=== PATIENT | male | born 1975 | race Caucasian/White ===

== ENCOUNTER 2018-01-09 23:05 | Emergency (ER) | payer SELFPAY ==
[2018-01-10] MEDS ORDERED: CATAPRES PO ONE ×2 (01:09→07:15)
[2018-01-10 01:43] LABS: Basophils % (Auto) 0.4 % (0.0-1.8); Eosinophils % (Auto) 0.3 % (0.0-4.3); Hematocrit 41.8 % (35.5-45.6); Hemoglobin 14.6 gm/dl (11.8-15.2); Lymphocytes # (Auto) 0.8 K/mm3 (1.2-5.4); Mean Corpuscular HGB Conc 35 % (32-34); Mean Corpuscular Hemoglobin 30 pg (28-32); Mean Corpuscular Volume 87 fl (84-94); Monocytes # (Auto) 0.5 K/mm3 (0.0-0.8); Monocytes % (Auto) 6.4 % (0.0-7.3); Platelet Count 145 K/mm3 (140-440); Red Blood Count 4.83 M/mm3 (3.65-5.03); Red Cell Distribution Width 15.1 % (13.2-15.2)
[2018-01-10 02:00] LABS: Alanine Aminotransferase 28 units/L (7-56); BUN/Creatinine Ratio 19; Blood Urea Nitrogen 17 mg/dL (9-20); Calcium 8.9 mg/dL (8.4-10.2); Hemolysis Index 8
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
[2018-01-10 09:28] VITALS: BP 158/109
== END 2018-01-10 10:26 | disposition home or self-care (01) ==
LOC: ED 23:05
DX: I10 Essential (primary) hypertension (principal); R42 Dizziness and giddiness; Z91.14 Patient's other noncompliance with medication regimen
CPT/HCPCS: 36415; 80053; 85025; 93005; 93010

== ENCOUNTER 2018-02-05 01:40 | Emergency (ER) | payer SELFPAY ==
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
[2018-02-05] MEDS ORDERED: ZOFRAN IV ONE (03:11)
[2018-02-05] MEDS ORDERED: NORMODYNE IV ONE (03:11)
[2018-02-05] MEDS ORDERED: ANTIVERT PO ONE (03:12)
[2018-02-05 03:46] LABS: Basophils % (Auto) 0.4 % (0.0-1.8); Eosinophils % (Auto) 0.3 % (0.0-4.3); Hematocrit 41.5 % (35.5-45.6); Hemoglobin 14.3 gm/dl (11.8-15.2); Lymphocytes # (Auto) 0.7 K/mm3 (1.2-5.4); Lymphocytes % (Auto) 9.2 % (13.4-35.0); Mean Corpuscular HGB Conc 34 % (32-34); Mean Corpuscular Hemoglobin 30 pg (28-32); Mean Corpuscular Volume 87 fl (84-94); Monocytes # (Auto) 0.4 K/mm3 (0.0-0.8); Monocytes % (Auto) 6.1 % (0.0-7.3); Platelet Count 122 K/mm3 (140-440); Red Blood Count 4.78 M/mm3 (3.65-5.03); Red Cell Distribution Width 14.3 % (13.2-15.2)
[2018-02-05 04:37] VITALS: BP 153/100
[2018-02-05 04:49] LABS: Alanine Aminotransferase 24 units/L (7-56); Albumin 4.8 g/dL (3.9-5); BUN/Creatinine Ratio 37; Blood Urea Nitrogen 26 mg/dL (9-20); Calcium 9.3 mg/dL (8.4-10.2); Hemolysis Index 6; Lipase 28 units/L (13-60)
[2018-02-05 04:50] LABS: Bilirubin,Direct < 0.2 mg/dL (0-0.2)
== END 2018-02-05 05:00 | disposition home or self-care (01) ==
LOC: ED 01:40
DX: I16.0 Hypertensive urgency (principal); E78.5 Hyperlipidemia, unspecified
CPT/HCPCS: 36415; 80048; 80074; 83690; 85025; 93005; 93010; 96374; 96375; 99284; G0480; J2405; 80320

== ENCOUNTER 2018-02-07 18:45 | Emergency (ER) | payer SELFPAY ==
[2018-02-07 19:25] LABS: Hematocrit 43.9 % (35.5-45.6); Hemoglobin 15.1 gm/dl (11.8-15.2); Mean Corpuscular HGB Conc 34 % (32-34); Mean Corpuscular Hemoglobin 30 pg (28-32); Mean Corpuscular Volume 87 fl (84-94); Platelet Count 141 K/mm3 (140-440); Red Blood Count 5.07 M/mm3 (3.65-5.03); Red Cell Distribution Width 14.4 % (13.2-15.2)
[2018-02-07 19:37] LABS: Bilirubin,Urine NEG (Negative); Blood,Urine NEG (Negative); Color,Urine Straw (Yellow); Protein,Urine <15 mg/dL mg/dL (Negative); Urobilinogen,Urine < 2.0 mg/dL (<2.0); WBC,Urine < 1.0 /HPF (0.0-6.0)
[2018-02-07 19:43] LABS: Alanine Aminotransferase 25 units/L (7-56); BUN/Creatinine Ratio 42; Blood Urea Nitrogen 25 mg/dL (9-20); Calcium 9.2 mg/dL (8.4-10.2); Hemolysis Index 11
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
[2018-02-07] MEDS ORDERED: CATAPRES PO ONE (20:57)
[2018-02-07 21:44] VITALS: BP 147/99
== END 2018-02-07 22:03 | disposition home or self-care (01) ==
LOC: ED 18:45
DX: I16.0 Hypertensive urgency (principal); I10 Essential (primary) hypertension; E78.5 Hyperlipidemia, unspecified
CPT/HCPCS: 36415; 80053; 81001; 84484; 85027; 93005; 93010; 99283